=== PATIENT | female | born 1940 | race Two or more races ===

== ENCOUNTER → 2024-10-31 | Outpatient (CLI) | payer MEDICARE, BC, SELFPAY ==
[2024-10-31 13:52] LABS: Albumin, Serum 4.1 gm/dL (3.4-4.8); Anion Gap 7 (7-16); BUN/Creatinine Ratio 31 Ratio (12-20); Blood Urea Nitrogen 25 mg/dL (9-23); Carbon Dioxide 28.2 mMol/L (20.0-31.0); Chloride 107 mMol/L (98-107); Creatinine (Component) 0.8 mg/dL (0.6-1.3); Glucose 99 mg/dL (74-106); Osmolality,Calculated 287 (275-295); Phosphorous 3.5 mg/dL (2.4-5.1); Potassium 4.1 mMol/L (3.4-5.1); Sodium 142 mMol/L (136-145); eGFR > 60 See Note
== END | disposition home or self-care (01) ==
LOC: CDIM 11:47 → COPL 12:02
PROVIDERS: PCP Internal Medicine; Referring Provider Internal Medicine; Visit Provider Internal Medicine
DX: I10 Essential (primary) hypertension (principal)
CPT/HCPCS: 36415; 80069

== ENCOUNTER 2025-05-22 08:26 | Emergency (ER) | payer MEDICARE, BC, SELFPAY ==
[2025-05-22 09:10] VITALS: BP 163/84; PULSE 58; RESP 18; TEMP 36.6; O2SAT 98; BMI 22.3
--- NOTE | 2025-05-22 09:23 | XR_ITS ---
Examination: CTA carotids with intravenous contrast CTA brain, head with intravenous contrast. 2-D sagittal, coronal reconstructions. 3-D reconstructions. Exam date and time: 05/22/2025t 1304 hours INDICATIONS: Stroke alert today, onset focal neurologic deficit numbness in the left hand beginning this morning CTDI: vol (mGy) 20.4 DLP: (mGycm) 418 Technique: Multiple CTA axial brain, head carotid images post intravenous contrast injection 75 cc, [id number]. 2-D sagittal, coronal reconstructions. 3-D reconstructions, 3-D post processing including vascular maximum intensity projection images. Low dose protocols were performed. One or more of the following dose reduction techniques were used; automated exposure control, adjustment of the mA and/or KV according to patient size, use of iterative reconstruction technique. Findings: Bilateral thyroid nodules, subcentimeter No significant common carotid carotid bifurcation or internal carotid artery stenoses Dominant left vertebral artery no critical vertebral artery stenoses Intracranial vertebral arteries intact Basilar artery is small diffusely but no occlusion, posterior cerebral branches also show no occlusion Moderate calcification juxtasellar portions internal carotid arteries Middle cerebral anterior cerebral branches demonstrate no large vessel occlusions IMPRESSION: Bilateral thyroid nodules No significant neck arterial stenoses No cerebral large vessel arterial occlusions
--- NOTE | 2025-05-22 09:23 | XR_ITS ---
Examination: CT brain head without contrast. 2-D sagittal coronal reconstructions Date and time of exam:May 22 thousand 25 1012 hours Comparison March 23, 2017 INDICATIONS: Onset numbness in the left hand beginning this morning CTDI: vol (mGy):46 DLP: (mGycm):881 Technique: Multiple CT axial sections of the brain have been obtained, 5 mm slice thickness. Contrast has not been administered. 2-D sagittal, coronal reconstructions have been obtained Low dose protocols were performed. One or more of the following dose reduction techniques were used; automated exposure control, adjustment of the mA and/or KV according to patient size, use of iterative reconstruction technique. Findings: No significant ventricular enlargement. Intra-axial or extra-axial hemorrhage density is not seen. No mass effect or midline shift Basal cisterns are not remarkable. Fourth ventricle is midline. Cranial vault intact. Impression: Negative for acute hemorrhage, mass effect or midline shift As clinically warranted, brain MRI follow-up would best assess for acute ischemic change
--- NOTE | 2025-05-22 09:51 | PD.EDRME ---
Rapid Medical Screening Exam RME Arrival date/time: 05/22/25 08:26 Chief Complaint: Hand/Wrist Problems Time Seen by Provider: 05/22/25 08:54 Vital signs: Vital Signs Temperature 97.8 F 05/22/25 09:10 Pulse Rate 58 L 05/22/25 09:10 Respiratory Rate 18 05/22/25 09:10 Blood Pressure 163/84 H 05/22/25 09:10 Pulse Oximetry (%) 98 05/22/25 09:10 Oxygen Delivery Method Room Air 05/22/25 09:10 Vital signs reviewed by provider: Yes RME Narrative: 85-year-old female presents for evaluation of acute onset left hand numbness x 8 hours. Patient reports she fell asleep on reading her book and woke up with initially tingling in her 1st and 2nd digit of her left hand which gradually progressed to numbness. Denies chest pain, shortness of breath, visual changes, weakness, change in gait. Patient is not on a blood thinner.
--- NOTE | 2025-05-22 12:09 | EDNOTE_ITS ---
Upper Extremity Injury RME/HPI General Chief Complaint: Hand/Wrist Problems Stated Complaint: Left hand numbness today Time Seen by Provider: 05/22/25 08:54 Arrival date/time: 05/22/25 08:26 Limitations: no limitations RME / HPI RME / HPI narrative: 85-year-old female presents for evaluation of acute onset left hand numbness x 8 hours. Patient reports she fell asleep last night at midnight while reading her book and woke up at 04:30 tingling in her 1st and 2nd digit of her left hand. Her sensation gradually progressed to numbness in her left hadn 1st and 2nd digit with radiation to her mid-forearm. Denies chest pain, shortness of breath, visual changes, weakness, change in gait. Patient is not on a blood thinner. Patient states that she takes metoprolol for hypertension. Denies history of similar symptoms. MD complaint: injury to: left Related Data Home Medications ?Medication ?Instructions ?Recorded ?Confirmed metoprolol succinate 50 mg 50 mg PO QDAY ##0 03/23/17 12/10/19 tablet,extended release 24 hr (Toprol XL) alendronate 70 mg tablet 70 mg PO QWEEK 09/03/1911/27 calcium 500 mg (as 1 tab PO BID 09/03/19 carbonate)-vitamin D3 3.125 mcg (125 unit) tablet (Calcium) Allergies Allergy/AdvReac Type Severity Reaction Status Date / Time No Known Allergies Allergy Verified 05/22/25 08:30 Review of Systems Constitutional Constitutional: Denies body ache(s), Denies chills, Denies fatigue, Denies fever(s), Denies frequent falls and Denies headache(s) Eyes Eyes: Denies blind spots, Denies blurry vision, Denies change in vision and Denies loss of vision ENT Ears, Nose, Mouth, and Throat: Denies disequilibrium, Denies dizziness, Denies otalgia, Denies headache(s) and Denies neck pain Cardiovascular Cardiovascular: Denies chest pain, Denies dyspnea, Denies leg edema and Denies palpitations Respiratory Respiratory: Denies cough, Denies dyspnea and Denies wheezing Gastrointestinal Gastrointestinal: Denies nausea and Denies vomiting Musculoskeletal Musculoskeletal: Denies abnormal gait, Denies arthralgias, Denies muscle weakness, Denies neck pain, Reports numbness (Left hand 1st and 2nd digit.) and Reports tingling (Left hand 1st and 2nd digit.) Integumentary/Breasts Skin/Breast: Denies lesions and Denies rash Neurologic Neurologic: Denies abnormal gait, Denies abnormal movements, Denies abnormal speech, Denies disequilibrium, Denies dizziness, Denies localized weakness, Denies frequent falls, Denies headache(s), Denies loss of vision, Reports numbness (Left hand 1st and 2nd digit.) and Reports tingling (Left hand 1st and 2nd digit.) Endocrine Endocrine: Denies fatigue and Denies palpitations Allergic/Immunologic Allergic/Immunologic: Denies wheezing Past Medical History Past Medical History NEUROLOGIC: Negative Neurological Disorders or Seizures CARDIAC: Positive Hypertension; Negative Cardiac Disorders or Congestive Heart Failure RESPIRATORY: Negative Chronic Obstructive Pulmonary Disease (COPD) or Asthma GASTROINTESTINAL: Negative Gastrointestinal Disorders GENITOURINARY: Negative Genitourinary Disorders or Renal Disease MUSCULOSKELETAL: Positive Musculoskeletal Disorders, Rheumatoid Arthritis and Osteoporosis ENT: Positive Cataracts ENDOCRINE: Negative Endocrine Disorders, Diabetes Mellitus Type 1 or Diabetes Mellitus Type 2 HEMATOLOGIC: Negative Blood Disorders or Sickle Cell Disease OTHER HISTORY: Positive Chicken Pox, Measles and Mumps; Negative Autoimmune Disease, Blood Transfusions or Anesthesia Reactions Surgical History SURGICAL: Positive Hysterectomy (TVH) Social History SMOKING STATUS: Never smoker ED Exam General Limitations: Present no limitations General appearance: Present alert and in no apparent distress Head Head exam: Present atraumatic and normocephalic Eye Eye exam: Present normal appearance, PERRL and EOMI; Absent nystagmus ENT ENT exam: Present normal oropharynx and mucous membranes moist Neck Neck exam: Present normal inspection and full ROM Chest Chest inspection: Present normal inspection and symmetric chest wall rise Respiratory Respiratory exam: Present normal lung sounds bilaterally; Absent respiratory distress Cardiovascular Cardiovascular exam: Present bradycardia and +S1 Abdominal Exam Abdominal exam: Present soft; Absent distention Expanded Upper Extremity Exam Arm exam: Present normal inspection and full ROM Elbow exam: Present normal inspection and full ROM; Absent tenderness Hand exam: Absent swelling, ecchymosis or deformity Vascular exam: Normal capillary refill and radial pulse Neurological Exam Neurological exam: Present alert, oriented X3 and normal gait Expanded Neurological Exam Patient oriented to: Present person, place and time Speech: Present fluid speech Cranial nerves: Normal: facial sensation (V), facial palsy (VII) and spinal accessory function (XI) Cerebellar function: Present normal gait and Romberg normal Motor strength - LUE: 3/5 Motor strength - RUE: 5/5 Motor strength - LLE: 5/5 Motor strength - RLE: 5/5 Sensory exam upper extremity: Normal: light touch and pin prick Psychiatric Psychiatric exam: Present normal affect Skin Skin exam: Present warm, dry and normal color Course Quality Measures none Orders Category Date Time Status CT Screening NOW Care 05/22/25 09:25 Completed Insert IV NOW Care 05/22/25 12:[address] angio carotid w head w Stat Exams 05/22/25 09:[address] head/brain wo con Stat Exams 05/22/25 09:23 Completed BMP [Basic Metabolic Panel] Stat Lab 05/22/25 12:09 Completed Lisinopril [Prinivil] Med 05/22/25 14:55 Discontinued 20 mg PO X1 ONE Metoprolol Succinate Xl [Toprol Xl] Med 05/22/25 14:44 Discontinued 25 mg PO X1 ONE Reevaluation(s) Reevaluation #1: Patient reevaluated in the [facility]. She reports no change to her left hand numbness. Pending CTA head and neck. Patient A& O x 3. Ambulating with steady gait. Time: 12:09 Vital Signs Vital signs: Vital Signs Temperature 97.8 F 05/22/25 09:10 Pulse Rate 58 L 05/22/25 09:10 Respiratory Rate 18 05/22/25 09:10 Blood Pressure 163/84 H 05/22/25 09:10 Pulse Oximetry (%) 98 05/22/25 09:10 Oxygen Delivery Method Room Air 05/22/25 09:10 Extremity Injury MDM Narrative MDM Narrative:: Very pleasant 85-year-old female presented for acute onset left hand numbness. Patient hypertensive upon initial vital signs. Physical exam showed some weakness in her left upper extremity so CT head and CTA head and neck were ordered to assess for acute intracranial process, and fortunately there was none seen on CT or CTA today. Bilateral thyroid nodules incidentally found. No ches t pain or shortness of breath therefore less concern for ACS at this time. Patient was hypertensive in the 200s prior to discharge for which she was given a dose of her metoprolol (patient states that she had not taken her antihypertensive medications this morning) and repeat neuroexam was performed with no focal neurodeficit on examination. Patient continued to deny headache and visual changes. Repeat blood pressure was still elevated, however using shared decision making with patient and her niece who is present we discharged with plan to follow-up with primary care in the morning. It was our pleasure to partake in care of this patient today. Patient stable at time of discharge. Patient data External records reviewed:: [facility] previous records Clinical information provided by:: patient and family Social determinants that could affect healthcare access:: none Patient has the following chronic illnesses:: Hypertension. How is presenting disease/condition affected by chronic disease/condition?: uneffected by Evaluation data The following diagnostics were reviewed and interpreted by me:: lab results and radiology exam(s) Lab and/or radiology exams considered but not ordered:: Considered not ordered. Interpretation Summary: CTA head and neck showed multiple bilateral thyroid nodules with no acute vascular abnormality. No occlusion. CT head without contrast showed no midline shift, no mass effect, no acute intracranial bleed. BNP showed no gross electrolyte abnormality and renal function within normal range. Medications / Prescriptions Medications or Prescriptions considered but not ordered:: Rx given. Medication administrations:: Medication Administration History Discontinued Medications Lisinopril (Lisinopril 20 Mg Tablet) 20 mg PO X1 ONE Stop: 05/22/25 14:56 Last Admin: 05/22/25 14:57 Dose: Not Given Documented By: CHASIDY Non-Admin Reason: Cancelled by Provider Metoprolol Succinate (Metoprolol Succinate Xl 25 Mg Tabcr) 25 mg PO X1 ONE Stop: 05/22/25 14:45 Last Admin: 05/22/25 14:51 Dose: 25 mg Documented By: CHASIDY Rx given. Consultations Consultation(s) initiated? (list below): No Diagnosis Upper Extremity Injury Differential Diagnosis: other (CVA, peripheral nerve disorder, electrolyte abnormality, TIA.) Most likely diagnosis given after review of the tests above:: Peripheral nerve disorder, hypertensive episode, bilateral thyroid nodules. Admission Indicated Admission indicated?: not indicated Admission Request Was there a request for admission?: No Disposition Plan Disposition Plan: Discharge Discharge Attestation Discharge Attestation: The patient and all family members were given an opportunity to ask questions and understood the discharge instructions. Discharge instructions specifically effects, indications for sooner follow up or return to the emergency department, and the expected course of current diagnosis. Patient condition: Stable Discharge Plan Plan Patient Disposition: HOME (Self Care) Discharge Disposition comment: stable Prescriptions/Referrals Prescriptions/Med Rec: No Action metoprolol succinate [Toprol XL] 50 MG tablet extended release 24 hr 50 mg PO QDAY Qty: 0 alendronate 70 mg Tablet 70 mg PO QWEEK calcium carbonate-vitamin D3 [Calcium 500 + D (D3)] 500 mg(1,250mg) -125 unit Tablet 1 tab PO BID Referrals: Shar Khan MD [Primary Care Provider] - In 1 week Problem List Clinical Impression: Numbness and tingling in left hand, Multiple thyroid nodules Impression comment: Take Tylenol or ibuprofen as needed every 6 hours for left hand discomfort. Follow-up with primary care within the next week for r eevaluation. Consider thyroid panel given CT finding of thyroid nodules. Return to the ED if your symptoms worsen or change. CTA head/neck IMPRESSION: Bilateral thyroid nodules Patient/Caregiver Discharge Instructions Education Materials: Treating Thyroid Problems, Common Thyroid Problems Print Language: [place] Stand Alone Forms: Latoya Award Info., Patient Portal Info Letter PA/DIGESTER OPERATOR HELPER Supervising Physician PA/DIGESTER OPERATOR HELPER Supervising Physician: Dr. Cortez
[2025-05-22 12:45] LABS: Anion Gap 8 (7-16); BUN/Creatinine Ratio 20 Ratio (12-20); Blood Urea Nitrogen 12 mg/dL (9-23); Chloride 105 mMol/L (98-107); Creatinine (Component) 0.6 mg/dL (0.6-1.3); Estimated Creatinine Clearance 53.2 mL/min (>60); Glucose 103 mg/dL (74-106); Osmolality,Calculated 277 (275-295); Potassium 3.9 mMol/L (3.4-5.1); Sodium 139 mMol/L (136-145); eGFR > 60 See Note
[2025-05-22 14:51] VITALS: BP 215/82; PULSE 54
[2025-05-22] MEDS: METOPROLOL SUCCINATE XL 25 MG TABCR PO (14:51)
[2025-05-22 15:25] VITALS: BP 194/79; PULSE 58; RESP 18; TEMP 36.6; O2SAT 100
== END 2025-05-22 15:26 | disposition home or self-care (01) ==
PROVIDERS: Physician Assistant; Emergency Provider Emergency Medicine; PCP Internal Medicine
DX: R20.0 Anesthesia of skin (principal); E04.2 Nontoxic multinodular goiter; I10 Essential (primary) hypertension
CPT/HCPCS: 36415; 70450; 70496; 70498; 80048; 99285; A4649; Q9967; A9270